=== PATIENT | male | born 1965 | race Caucasian/White ===

== ENCOUNTER 2016-07-19 17:12 | Observation (INO) | payer BC, SELFPAY ==
[~2016-07-19] VITALS: Ht 165.1 cm; Wt 82.6 kg
--- NOTE | 2016-07-20 14:49 | HP ---
ADMIT: 07/19/2016 RM/LOC: 518 [facility] MR#: [id number] [facility]#: [id number] [address] [facility] [address] [place] [place], [place] [address] GON[address] [place] [address] History and Physical SEX: M AGE: 50 : 1965 DATE OF SERVICE: CHIEF COMPLAINT: Abdominal pain, nausea, vomiting. HISTORY OF PRESENT ILLNESS: This is a 50-year-old, [place] Citizen-speaking gentleman, who presented after about a week of not feeling well. He reported a lot of nausea with some vomiting and lot of belching. Denied any vomiting up any blood. He has been taking a lot of ibuprofen because he has had a great deal of knee pain. He says he only takes about 2 tablets of ibuprofen a day. He drinks about 3 beers per day during the weekdays and about a 12-pack per day on the weekends. He has never had any seizures or hallucinations whenever he stops drinking. Anyway, he was feeling poorly, so he went to an outside facility at [facility] [place]. There, his white count was 4.8, hemoglobin of 14.7, and platelets of 272. His sodium was 126, potassium 3.5, bicarbonate 27, chloride 94, glucose 161, calcium 8.0, BUN 10, creatinine 0.8, alkaline phosphatase was 103, ALT was 1589, AST was greater than 2000, bilirubin total was 2.5, albumin was 3.4, total protein was 7.3. He does not really give me much of the history other than he has not felt well, he does have lower abdominal pain described as severe. PAST MEDICAL HISTORY: He says none. PAST SURGICAL HISTORY: He denies any surgeries. MEDICATIONS: Include: 1. Ibuprofen. 2. Multivitamin. SOCIAL HISTORY: He did smoke in the past, but none currently. He works in construction. FAMILY HISTORY: Reviewed, but noncontributory. REVIEW OF SYSTEMS: Other complete review of systems obtained and negative except as above. PHYSICAL EXAMINATION: VITAL SIGNS: Temperature 100.1, pulse 75, respirations 16, blood pressure 141/87, oxygen saturation 97% on room air. GENERAL: This is a well-appearing 50-year-old male. He is in no apparent distress. He is alert and oriented. HEENT: Pupils equal, round, and reactive to light and accommodation. Extraocular muscles are intact. His throat is clear. Face appears reddened and flushed. NECK: Supple. Trachea midline. Thyroid not palpable. HEART: Regular rate and rhythm. LUNGS: Diminished, but clear bilaterally. ABDOMEN: Soft, but diffusely mild tenderness. MUSCULOSKELETAL: Lower extremities have no edema. Knees bilaterally have some crepitus with normal range of motion. No redness or effusions or ADMIT: 07/19/2016 RM/LOC: 518 [facility] MR#: [id number] [address] [address] GILBERTO VALLE GONZALES [facility] [address] [place] [address] History and Physical SEX: M AGE: 50 : 1965 tenderness. He can move all extremities equally bilaterally. NEUROLOGICAL: Cranial nerves are intact. LABORATORY AND X-RAY DATA: As above. Here, he had an INR of 1.53 and a pro- time of 16.1, normal range is 9.[address] of his abdomen and pelvis showed fatty infiltration of liver, mild distention of gallbladder, 2.5 cm right pole renal cyst, and normal bowel gas pattern. Lipase was 178, which is normal. Ethanol was 16 mg/dL. Urine drug screen was negative. ASSESSMENT AND PLAN: 1. Acute hepatitis, likely alcoholic. 2. Coagulopathy. 3. Abdominal pain. 4. Alcohol-induced gastritis. 5. Hyponatremia. His discriminant function is somewhere between 23 and 34 depending on the normal range of his pro-time. MELD score of 15. He is a little bit lower than severe risk; however, I will start him on some steroids right now and will see how he does over the next day or so. I am going to treat him as an outpatient. He may go into alcohol withdrawal with alcohol withdrawal protocol. He will get a banana bag with thiamine. Check hepatitis virus panel as well. Check his iron and TIBC as he may have underlying liver disease related to iron deposition disease. I will also check an JAVAD to make sure he does not have autoimmune hepatitis. Robi Almanzar MD/ gaby JOB #: [id number] CC: Robi Almanzar, Attending Physician [place] Solis, Family Physician
[2016-07-21] MEDS ORDERED: THERA1 EACH PO (21:44)
[2016-07-21] MEDS ORDERED: PRILOSEC DPS20 MG PO (21:44)
[2016-07-21] MEDS ORDERED: VITAMIN B1100 MG PO (21:44)
--- NOTE | 2016-07-24 06:50 | DS ---
ADMIT: 07/19/2016 RM/LOC: 518 [facility] MR#: [id number] [address] [facility] [address] [place], [place] [address] GONZALES AG[address] [place] [address] Discharge Summary SEX: M AGE: 50 : 1965 ADMISSION DATE: 07/19/2016 DISCHARGE DATE: 07/20/2016 FINAL DIAGNOSES: 1. Acute hepatitis. 2. Nausea, vomiting. 3. Abdominal pain. 4. Alcoholism. 5. Possible alcoholic hepatitis. REASON FOR ADMISSION: This is a 50-year-old gentleman, who was sent to the ER after going to [facility] and finding his ALT greater than 2000, AST in the 1500 range. He was presented here. Had an INR of 1.53 and had a normal abdominal CT scan. ER's initial thought was to discharge him. They asked me my opinion, so we admitted him to look for possible acute liver failure. The next day, his ALT was down to 1400, and in the outside labs the AST was greater than 2000, but anyway the AST was about 1563, albumin 3.3, bilirubin was 2.7. The patient was feeling much better. He actually wanted to go home. We ordered a hepatitis virus panel, which had not resulted at the time of this dictation. The patient was able to eat and drink and felt okay so he wanted to be discharged to home, so this was set up to be discharged home. He will maintain on thiamine, multivitamin. He should abstain from alcohol. He will follow up with Dr. Solis. When I saw him, he designated her as his primary physician, so we will CC this note to her. He can follow up in one weeks' time for follow up on his virus panel. Robi Almanzar MD/ julissa JOB #: [id number] CC: Robi Almanzar MD, Attending Physician Albania Solis MD, Family Physician Albania Solis MD
--- NOTE | 2016-07-27 09:05 | ER ---
ADMIT: 07/19/2016 RM/LOC: 518 [facility] MR#: [id number] [address] [facility] [address] [place], [place] [address] GILBERTO VALLEMARICRUZO Daphne [facility] [address] [place] [address] Emergency Room Report SEX: M AGE: 50 : 1965 DATE: 07/19/2016 PRIMARY CARE: None. CHIEF COMPLAINT: Abdominal pain. HISTORY OF PRESENT ILLNESS: This is a 50-year-old Indian-speaking male, who presents after being evaluated at [facility] prior to arrival. The patient states for the past 4 days he has been having some abdominal pain and malaise. Admits to some nausea. Denies any vomiting. Admits to loss of appetite. No fever, chills, diarrhea, bloody stools, or problems with urinating. States primarily epigastric and right upper quadrant pain. Further questioning does reveal a significant alcohol use history upto three 15-ounce beers during the week and up to 9+ 16-ounce beers on the weekends. Currently, he rates his pain as an 8/10. Otherwise, healthy. PAST MEDICAL HISTORY: No chronic illnesses. PAST SURGICAL HISTORY: No surgeries. Has not regularly seeing doctors. MEDICATIONS: Takes no medications. ALLERGIES: NONE. SOCIAL HISTORY: No smoking. No drugs. Certainly the alcoholic history. COURSE IN THE EMERGENCY ROOM: The patient was seen and examined. He is afebrile and nontoxic. He does look uncomfortable. He is alert. HEENT: Head is normocephalic and atraumatic. Eyes are without injection or jaundice. Pharynx is nonerythematous. Neck is soft and supple. No respiratory distress. Heart is regular. Abdomen is soft. Does have some generalized right upper quadrant and upper quadrant tenderness. No guarding or rebound. No McBurney point tenderness. Skin is warm and dry. No jaundice. Extremities are nontender. No pedal edema. He is alert and oriented x4. Motor and sensation are normal. He is able to ambulate in the department tonight. I did review the lab work sent over by Will Wallis shows white count 4.8, hemoglobin 14.7, hematocrit 45.7, and platelets 272. Electrolytes: Sodium 126, potassium 3.5, glucose 161, creatinine 0.8, ALT was 1589, AST is greater than 2000, and bilirubin was 2.5. Lipase 178. INR was 1.53. I did get a CT abdomen and pelvis for him today shows an enlarged fatty liver. He ADMIT: 07/19/2016 RM/LOC: 518 [facility] MR#: [id number] [address] [address] GONZALES AGUDELO [address] [place] [address] [address] [place] [address] Emergency Room Report SEX: M AGE: 50 : 1965 was given morphine and Zofran as well as a liter of fluids in the department tonight. I did speak with Dr. Almanzar about this patient today consulting him this would be admission versus close followup. He thought it best to keep him tonight for further evaluation and management. IMPRESSION: 1. Transaminitis likely secondary to alcohol. 2. Fatty hepatomegaly. DISPOSITION: The patient will be admitted to Med/Surg care, Dr. Almanzar for further evaluation and management. He is discharged to the floor in stable condition. PAPI Bolanos / Omero Oneal MD / modl JOB #: [id number] CC: Robi Almanzar MD, Attending Physician Alban[place] Solis MD, Family Physician
== END 2016-07-20 15:58 | disposition home or self-care (01) ==
LOC: ER 17:12 → 5MS 20:26
PROVIDERS: ADMIT Internal Medicine
DX: K70.10 Alcoholic hepatitis without ascites (principal); D68.9 Coagulation defect, unspecified; E87.1 Hypo-osmolality and hyponatremia; K76.0 Fatty (change of) liver, not elsewhere classified; M25.569 Pain in unspecified knee; K29.20 Alcoholic gastritis without bleeding; F10.20 Alcohol dependence, uncomplicated; Y90.0 Blood alcohol level of less than 20 mg/100 ml; Z87.891 Personal history of nicotine dependence